=== PATIENT | female | born 1955 | race Caucasian/White ===

== ENCOUNTER 2019-09-05 18:36 | Observation (INO) ==
--- NOTE | 2019-09-05 20:11 | Diag Imaging Result Doc PS360 ---
EXAM : CT HEAD/C-SPINE W/O CONTRAST HISTORY: ams fall TECHNIQUE: 1. CT head without contrast 2. CT cervical spine without contrast COMPARISON: Head compared to 11/22/2018 FINDINGS: Head: No parenchymal hemorrhage. No epidural or subdural hematoma. No subarachnoid hemorrhage. There is atrophy. No mass identified on this noncontrasted exam. No hydrocephalus. No skull fracture. Cervical spine: Mild scoliosis with reversal of the normal curvature. No precervical soft tissue swelling. No subluxation. No fracture. Degenerative bone spurring most pronounced at C6-7. IMPRESSION: Head: No hemorrhage. No injury. Cervical spine: No acute fracture. This exam was performed using automated exposure control, adjustment of mA or kV according to patient size, and/or use of iterative reconstruction technique. Electronically signed by Demario Durham 09/05/2019 8:09 PM
[2019-09-05 21:52] LABS: BASO# 0.04 X1000 (0.0-0.2); BASO% 0.3 % (0.0-0.8); EOS# 0.04 X1000 (0.0-0.7); EOS% 0.3 % (0.0-10.0); HEMATOCRIT 34.6 % (37.0-47.0); HEMOGLOBIN 10.9 g/dL (12.0-16.0); IMM GRAN# 0.04 X1000 (0.0-0.04); IMM GRAN% 0.3 % (0.0-0.5); LYMPH# 1.33 X1000 (1.2-3.4); LYMPH% 10.2 % (20.5-51.1); MCH 29.6 PG (27-31); MCHC 31.5 g/dL (33-37); MONO# 1.09 X1000 (0.11-0.59); MONO% 8.4 % (1.7-9.3); MPV 10.6 FL (7.4-10.4); NEUT# 10.46 X1000 (1.4-6.5); NEUT% 80.5 % (42.2-75.2); PLT 339 X1000 (130-400); RBC 3.68 XMIL (4.2-5.4); RDW 14.4 % (11.5-14.5)
--- NOTE | 2019-09-05 21:53 | Diag Imaging Result Doc PS360 ---
EXAM: CHEST-PORTABLE HISTORY: AMS TECHNIQUE: Single view COMPARISON: 11/22/2018 FINDINGS: The lungs are well expanded. The heart is not enlarged. The vessels are not distended. There are no infiltrates. No effusion identified. IMPRESSION: Negative exam. Electronically signed by Demario Durham 09/05/2019 9:50 PM
[2019-09-05 22:05] LABS: INR 1.11; PROTIME 14.9 Seconds (11.0-16.0)
[2019-09-05 22:06] LABS: PTT 29.7 Seconds (22.3-41.8)
[2019-09-05 22:12] LABS: URINE SOURCE CATH
[2019-09-05 22:15] LABS: ALBUMIN 4.7 g/dL (3.5-5.0); CALCIUM 9.7 mg/dL (8.8-10.2); CREATININE 3.1 mg/dL (0.5-0.9); POTASSIUM 4.2 mmol/L (3.5-5.1); TOTAL BILIRUBIN 0.3 mg/dL (0.20-1.00); TOTAL PROTEIN 8.1 g/dL (6.3-8.3)
[2019-09-05 22:17] LABS: BILIRUBIN URINE SMALL (NEGATIVE); BLOOD URINE NEGATIVE (NEGATIVE); COLOR ORANGE; GLUCOSE URINE NEGATIVE (NEGATIVE); KETONE URINE TRACE mg/dL (NEGATIVE); LEUKOCYTES URINE NEGATIVE (NEGATIVE); NITRITE URINE NEGATIVE (NEGATIVE); PH URINE 5.5; PROTEIN URINE 100 mg/dL (NEGATIVE); SP GRAVITY URINE 1.023; TURBIDITY URINE TURBID (CLEAR); UROBILINOGEN URINE 3 mg/dL (NORMAL)
[2019-09-05 22:23] LABS: UR AMPHETAMINES QUAL NONE DETECTED (NONE DETECT); UR BARBITUATES QUAL NONE DETECTED (NONE DETECT); UR BENZODIAZEPIN QUAL PRESUMPTIVE POSITIVE (NONE DETECT); UR COCAINE QUAL PRESUMPTIVE POSITIVE (NONE DETECT)
[2019-09-05 22:24] LABS: UR CANNABINOIDS QUAL NONE DETECTED (NONE DETECT); UR METHADONE QUAL NONE DETECTED (NONE DETECT); UR METHAMPHETAMINE QUAL NONE DETECTED (NONE DETECT); UR OPIATES QUAL NONE DETECTED (NONE DETECT); UR OXYCODONE QUAL NONE DETECTED (NONE DETECT); UR PCP QUAL NONE DETECTED (NONE DETECT); UR PROPOXYPHENE QUAL NONE DETECTED (NONE DETECT); UR TCA QUAL PRESUMPTIVE POSITIVE (NONE DETECT)
[2019-09-05 22:39] LABS: UR EPITHELIAL CELLS <10 /HPF (<10); URINE RBC <10 /HPF (<10); URINE WBC <10 /HPF (<10)
[2019-09-05 22:40] LABS: URINE BACTERIA 2+ /HPF; URINE CASTS NONE SEEN; URINE CRYSTALS NONE SEEN; URINE YEAST NONE SEEN
[2019-09-05 22:41] LABS: URINE SMALL ROUND CELLS TRANS PRESENT
[2019-09-05] MEDS ORDERED: NS 1,000 ML IV ONE (23:18)
[2019-09-05] MEDS ORDERED: NS 2,000 ML IV ONE (23:38)
--- NOTE | 2019-09-06 00:36 | PROVIDER DOCUMENTATION ---
This chart was entered by Jodee Crawford Scribe, acting as scribe for Arnol Shirley MD. HPI-General Adult - General Chief Complaint: Extremity Pain Stated Complaint: FALL/AMS Time Seen by Provider: 09/05/19 22:02 Source: patient Allergies/Adverse Reactions: Patient Allergies Allergy/AdvReac Type Severity Reaction Status Date / Time No Known Allergies Allergy Verified 09/05/19 21:36 Home Medications: Home Medication List Medication Instructions Recorded Confirmed Last Taken Type Amitriptyline HCl 25 mg PO QHS 09/05/19 09/05/19 Unknown History Baclofen [Lioresal] 10 mg PO 4XDAY PRN 09/05/19 09/05/19 Unknown History Buprenorphine HCl/Naloxone HCl 0.5 film SUBLINGUAL TID 09/05/19 09/05/19 Unknown History [Buprenorp-Nalox 8-2 mg Sl Film] Bupropion HCl [Bupropion HCl ER] 150 mg PO DAILY 09/05/19 09/05/19 Unknown History Lisinopril/Hydrochlorothiazide 1 tab PO DAILY 09/05/19 09/05/19 Unknown History [Lisinopril-Hctz 20-25 mg Tab] Sertraline HCl 1.5 tab PO DAILY 09/05/19 09/05/19 Unknown History Lorazepam [Ativan] 1 mg PO PRN PRN 09/06/19 09/06/19 Unknown History - History of Present Illness -Gen Adult Nature of Presenting Problems: Pt is a 64 yof who presents to the ED via roommate with a cc of decreased mental status after multiple falls in the past 2 wks. pt reports taking multiple mind altering medications. Pt roommate states that the pt has been confused for a year but it has worsened over the past wk. states that pt was seen at clinic recently and treated for back pain after fall. denies any other complaints. pt is a former illicit drug user. Severity: reports: mild Onset/Duration: reports: unsure Timing: reports: still present Context/Activities at Onset: reports: none Modifying Factors: improves with: nothing Associated Symptoms: reports: other (confusion) Similar Symptoms Previously?: Yes Recently seen or treated by another doctor?: Yes Review of Systems - Adult - REVIEW OF SYSTEMS - ADULT Constitutional: reports: see HPI Eyes: reports: no symptoms reported Ears, Nose, Mouth & Throat: reports: no symptoms reported Cardiovascular: reports: no symptoms reported Respiratory: reports: no symptoms reported Gastrointestinal: reports: no symptoms reported Genitourinary: reports: no symptoms reported Musculoskeletal: reports: no symptoms reported Integumentary: reports: no symptoms reported Neurological: reports: see HPI, loss of balance, other (confusion) Psychiatric: reports: see HPI, anti-depressant use Endocrine: reports: no symptoms reported Hematologic/Lymphatic: reports: no symptoms reported Allergic/Immunologic: reports: no symptoms reported All Other Systems: Reviewed and Negative Past History - Adult - PAST MEDICAL HISTORY-ADULT Review of Records: reports: Old Records Reviewed, Nursing Assessment Review, Medications Reviewed, Social history reviewed & non-contributory. Major Childhood Illnesses: reports: denies history Cardiovascular: reports: denies history Respiratory: reports: denies history Gastrointestinal: reports: denies history Obstetrical/Gynecological: reports: denies history Genitourinary: reports: denies history Musculoskeletal: reports: denies history Neurological: reports: denies history Endocrine/Immune: reports: denies history Other Conditions: reports: denies history - PRIOR SURGERIES/PROCEDURES Surgical/Procedure History: reports: none - IMMUNIZATION STATUS Childhood Immunizations: See Nurse Assessment Flu Vaccine: See Nurse Assessment - FAMILY HISTORY Family History: reviewed, not pertinent - SOCIAL HISTORY Substance Use: none presently/history of abuse, opiates Living Situation: friend Physical Exam-General - PHYSICAL EXAM-ADULT Initial Vital Signs Reviewed: No - CONSTITUTIONAL General Appearance: alert, no apparent distress - EYES Eyes: PERRL/EOMI, pink conjunctivae - HEAD, EARS, NOSE, MOUTH & THROAT HENMT: normocephalic/atraumatic, moist mucous membranes - RESPIRATORY Respiratory: chest non-tender, lungs clear, normal breath sounds, no respiratory distress, no accessory muscle use - CARDIOVASCULAR Cardiovascular: normal peripheral pulses, regular rate, rhythm - GASTROINTESTINAL (ABDOMEN) Abdominal Exam: normal bowel sounds, non tender, soft - MUSCULOSKELETAL Back Exam: normal inspection Extremity: normal range of motion, normal inspection - SKIN Integumentary: normal color, normal turgor, warm/dry - PSYCHIATRIC Psych/Mental Status: other (Pt is confused. Pt replies with "1993" when asked what year it is.) Progress - PLAN OF CARE/RESULTS Progress/Plan/Lab Results: Vital Signs - 8 hr 09/05/19 18:42 09/05/19 18:56 Temperature 98 F 98 F Pulse Rate 85 100 H Respiratory Rate 18 18 Blood Pressure 117/69 145/91 O2 Sat by Pulse Oximetry 97 96 Laboratory Results - last 24 hr 09/05/19 09/05/19 21:28 21:28 WBC 13.00 H RBC 3.68 L Hgb 10.9 L Hct 34.6 L MCV 94.0 MCH 29.6 MCHC 31.5 L RDW Std Deviation 14.4 Plt Count 339 MPV 10.6 H Immature Gran % (Auto) 0.3 Neut % (Auto) 80.5 H Lymph % (Auto) 10.2 L [place] % (Auto) 8.4 Eos % (Auto) 0.3 Baso % (Auto) 0.3 Immature Gran # (Auto) 0.04 Neut # (Auto) 10.46 H Lymph # (Auto) 1.33 [place] # (Auto) 1.09 H Eos # (Auto) 0.04 Baso # (Auto) 0.04 Plasma Lactate 1.2 Orders Category Date Time Status Cardiac Monitoring DIRECTED Care 09/05/19 21:11 Active Finger Stick Blood Sugar (ED) DIRECTED Care 09/05/19 21:11 Active Oxygen Therapy- ED Nursing DIRECTED Care 09/05/19 21:11 Active Saline Loc NOW Care 09/05/19 21:11 Active CHEST-PORTABLE [RAD] Stat Exams 09/05/19 21:[address] HEAD/C-SPINE W/O CONTRAST [CT] Stat Exams 09/05/19 18:52 Completed ALCOHOL BLOOD Stat Lab 09/05/19 21:28 Received CBC WITH ELECTRONIC DIFF [HEME] Stat Lab 09/05/19 21:28 Completed CK PROFILE [SP CHEM] Stat Lab 09/05/19 21:28 Received COMPREHENSIVE METABOLIC PANEL [CHEM] Stat Lab 09/05/19 21:28 Received LACTATE, PLASMA [CHEM] Stat Lab 09/05/19 21:28 Completed PROTIME WITH INR [COAG] Stat Lab 09/05/19 21:28 Received PTT [COAG] Stat Lab 09/05/19 21:28 Received TROPONIN T HIGH SENSITIVITY Stat Lab 09/05/19 21:28 Received URINALYSIS W/POSS RFLX CULT [URINALYSIS] Stat Lab 09/05/19 18:52 Uncollected URINE DRUG SCREEN PL Stat Lab 09/05/19 21:12 Uncollected Altered Mental Status Stat Oth 09/05/19 21:11 Ordered EKG [EKG] Stat Ther 09/05/19 21:11 Ordered Result Diagrams: 09/05/19 21:28 09/05/19 21:28 - EKG 1 Time of EKG reading by physician:: 23:24 EKG Read and Signed by:: Arnol Shirley EKG Interpretation (*Must complete 3 of following elements*): Normal Rate: 73 Rhythm: nsr [place]: normal QRS: normal ME Interval: normal ST Wave: normal - XRAY 1 XRAY: Bilateral XRAY Study: Chest Impression: Normal, See EMR Report (EXAM: CHEST-PORTABLE HISTORY: AMS TECHNIQUE: Single view COMPARISON: 11/22/2018 FINDINGS: The lungs are well expanded. The heart is not enlarged. The vessels are not distended. There are no infiltrates. No effusion identified. IMPRESSION: Negative exam. Electronically signed by Demario Durham 09/05/2019 9:50 PM 09/05/192149 Interpreting Physician: Demario Durham MD Dictated Date/Time: 09/05/192149 cc: Arnol Shirley MD; None,PCP) - CT/MRI 1 CT Study: Head Impression: See EMR Report ( EXAM : CT HEAD/C-SPINE W/O CONTRAST HISTORY: ams fall TECHNIQUE: 1. CT head without contrast 2. CT cervical spine without contrast COMPARISON: Head compared to 11/22/2018 FINDINGS: Head: No parenchymal hemorrhage. No epidural or subdural hematoma. No subarachnoid hemorrhage. There is atrophy. No mass identified on this noncontrasted exam. No hydrocephalus. No skull fracture. Cervical spine: Mild scoliosis with reversal of the normal curvature. No precervical soft tissue swelling. No subluxation. No fracture. Degenerative bone spurring most pronounced at C6-7. IMPRESSION: Head: No hemorrhage. No injury. Cervical spine: No acute fracture. This exam was performed using automated exposure control, adjustment of mA or kV according to patient size, and/or use of iterative reconstruction technique. El ectronically signed by Demario Durham 09/05/2019 8:09 PM 09/05/192008 Interpreting Physician: Demario Durham MD Dictated Date/Time: 09/05/192005 cc: Arnol Shirley MD; None,PCP) Departure - Departure Date of Disposition Decision: 09/05/19 Time of Disposition Decision: 23:19 DIAGNOSIS: Dehydration Disposition: HOME 01 Certified Medical Emergency: Emergent Condition: Stable - Critical Care Note This patient required my direct & personal management of CC.: No Attestation - Physician/ VISHAL Attestation Patient care was provided by Advanced Practice Provider:: No The physician spent face to face time with patient:: Yes Advanced Practice Provider documentation review:: Supervising physician onsite and consulted in the evaluation and care of this patient. The physician did have a face to face encounter with the patient. This chart was documented by the indicated scribe, (Jodee Crawford Scribe) and accurately reflects the services I performed and decisions made by me, Arnol Shirley MD, as attested by the provider's signature.
--- NOTE | 2019-09-06 05:34 | EKG Report ---
Test Performed on : 09/05/2019 11:24:39 PM Test Reason : ams Blood Pressure : / mmHG Vent. Rate : 073 BPM Atrial Rate : 073 BPM P-R Int : 178 ms QRS Dur : 062 ms QT Int : 368 ms P-R-T Axes : 010 046 093 degrees QTc Int : 405 ms Normal sinus rhythm. Normal ECG When compared with ECG of 22-NOV-2018 19:34, Nonspecific T wave abnormality, worse in Lateral leads Unconfirmed Result
[2019-09-06 08:11] LABS: ALBUMIN 4.3 g/dL (3.5-5.0); CALCIUM 9.1 mg/dL (8.8-10.2); CREATININE 2.8 mg/dL (0.5-0.9); POTASSIUM 3.7 mmol/L (3.5-5.1); TOTAL BILIRUBIN 0.3 mg/dL (0.20-1.00); TOTAL PROTEIN 7.8 g/dL (6.3-8.3)
[2019-09-06] MEDS ORDERED: LEVAQUIN 250 MG/D5W 250 MG/50 ML IVPB IV SCH (08:30)
[2019-09-06] MEDS ORDERED: NS 1,000 ML IV SCH (08:30)
--- NOTE | 2019-09-06 09:31 | Diag Imaging Result Doc PS360 ---
EXAM: MRI BRAIN W/O CONTRAST HISTORY: r/o cva TECHNIQUE: MRI brain without contrast. Axial, sagittal, and coronal images obtained in multiple sequences. COMPARISON: CT from 09/05/2019 FINDINGS: No recent infarct. There is mild atrophy. There are tiny areas of increased signal in the deep white matter on the T2 and FLAIR weighted images. No mass or midline shift. No epidural or subdural fluid collection. Normal orbits. No sinus opacification or air-fluid levels. IMPRESSION: 1.No recent infarct. There are only mild chronic microvascular ischemic changes. 2.Atrophy Electronically signed by Demario Durham 09/06/2019 9:29 AM
[2019-09-06] MEDS: ZOLOFT PO SCH (09:41)
[2019-09-06] MEDS: SUBOXONE 8 MG/2 MG FILM SL SCH ×2 (09:43→20:12)
--- NOTE | 2019-09-06 10:08 | HISTORY AND PHYSICAL ---
PRIMARY CARE PROVIDER: None. CHIEF COMPLAINT: Per friend at bedside, altered mental status. HISTORY OF PRESENT ILLNESS: Ms. 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 She takes Suboxone for that now. Her roommate reports she has had some memory loss over the past year. However, it is not interfered with her ability to function. She has a part- time job at [employer], does all of her ADLs herself. However, on Tuesday, she tripped and fell over one of her dogs and hurt her back. Since that time, she has been in the bed. She has had a cough and had an exacerbation in her altered mental status. Her friend felt, over the past few days, she was not taking her medication as she should. She felt maybe she was taking too little. She is currently awake, alert, and oriented to name and date of . She knows her roommate at her bedside. She thinks the year is 2003 and [facility] is the President. She does know that she is at [place] and she lives in [place]. Workup in the ED with a head and cervical spine CT did not show any acute findings. Chest x-ray was negative. Laboratory data shows acute renal failure, leukocytosis, elevated anion gap, and a urinary tract infection. She is positive for tricyclics, benzodiazepines, and cocaine which the patient and the roommate adamantly deny. She clinically appears to be dehydrated. She will be aggressively hydrated. We will start her on IV antibiotics for her UTI. Continue her on her home Suboxone at a lower dose to keep her from going into withdrawal and check a brain MRI. The patient's only complaint was continued back pain and a cough. She denies any recent fever, chills, chest pain, shortness of breath, nausea, vomiting, or diarrhea. PAST MEDICAL HISTORY: Anxiety, depression, hypertension, methamphetamine use 13-14 years ago. PAST SURGICAL HISTORY: Appendectomy, tonsillectomy. FAMILY HISTORY: Mother is from colon cancer. Sister from ovarian cancer. Father is , I believe from a car accident but he also had history of MIs. A brother with NC who is still living, and diabetes mellitus as well. SOCIAL HISTORY: She lives with a friend and has done so for the past 7 years. She is a smoker, half pack per day, has done so since she was a teenager. Social alcohol drinker but denies any illicit drug use. She does have a history of methamphetamine use 13 to 14 years ago. She is currently taking Suboxone for that. She does not have any children. She does have a dog named Nuno. That is her child, as well as 3 other dogs in her residence. PHYSICAL EXAMINATION: VITAL SIGNS: Temperature is 98 degrees, heart rate 74, respirations 18, blood pressure 141/76, O2 is 99% on room air. GENERAL: Ms. Jin is a pleasantly confused, 64-year-old, female, lying in the bed. No acute distress. HEENT: Atraumatic, normocephalic. PERRL. NECK: Supple. Trachea midline. CARDIOVASCULAR: S1, S2 appreciated. No murmurs, gallops, or rubs noted. RESPIRATORY: Lung sounds, scattered rhonchi. No rales or wheezes. GI: Soft, nontender, nondistended. Positive bowel sounds in 4 quadrants. EXTREMITIES: Lower extremities are negative for edema. NEUROLOGIC: Patient is alert to name and date of , location. However, she believes the year is 2003 and [facility] is President. DIAGNOSTIC DATA: Head and cervical spine CT did not show anything acute. Chest x-ray, negative exam. EKG, normal sinus rhythm at 73 beats per minute. LABORATORY DATA: White count 13, hemoglobin and hematocrit 10 and 34, platelet count is 339,000. Sodium 138, potassium 4.2, anion gap is 20, BUN 54, creatinine 3.1, blood glucose is 161. Troponin 34. Plasma lactate 1.2. Urinalysis, 2+ bacteria, negative for nitrites, turbid. Toxicology screen positive for tricyclics, benzodiazepines, and cocaine. Alcohol level 0. ASSESSMENT AND PLAN: 1. Altered mental status, multifactorial. Could be toxic as well as metabolic. Per her friend at bedside, she has not been taking her home medications since Tuesday, as she should. Could be possible withdrawal. She does have a small urinary tract infection. She does have an anion gap metabolic acidosis. She is clinically dehydrated. We will treat her for her urinary tract infection. Await the urine culture. Continue with aggressive intravenous hydration and start her back on her home Suboxone at a lower dose. Check a brain MRI. 2. Urinary tract infection. Continue antibiotic. Await culture. 4. Anion Gap Metabolic Acidosis continue with IVF's 5. Reported multiple falls at home per emergency department record. Did not get that from the patient or her roommate at the bedside, but she did have a fall on Tuesday. We will get physical therapy involved. 6. Back pain secondary to a fall on Tuesday. 7. Acute renal failure. We will continue with aggressive intravenous hydration. Believed to be secondary to dehydration. 8. Clinical dehydration. Continue with aggressive intravenous fluids. 9. Anxiety and depression. We will continue home medications when appropriate. We will continue her Zoloft and amitriptyline. 10. Hypertension. The patient had some borderline blood pressures overnight. We will monitor for now. 11. Further recommendations to follow physician evaluation, laboratory and diagnostic data. Dictated by VIRGINIA Busch for Lele Lozano MD cc: Lele Lozano MD MTDD
[2019-09-06] MEDS: MUCINEX PO SCH ×2 (12:03→20:11)
[2019-09-06] MEDS ORDERED: LR 1,000 ML IV SCH (14:30)
[2019-09-06 16:44] LABS: UR AMPHETAMINES QUAL NONE DETECTED (NONE DETECT); UR BARBITUATES QUAL NONE DETECTED (NONE DETECT); UR BENZODIAZEPIN QUAL PRESUMPTIVE POSITIVE (NONE DETECT); UR CANNABINOIDS QUAL NONE DETECTED (NONE DETECT); UR COCAINE QUAL NONE DETECTED (NONE DETECT); UR METHADONE QUAL NONE DETECTED (NONE DETECT); UR METHAMPHETAMINE QUAL NONE DETECTED (NONE DETECT); UR OPIATES QUAL NONE DETECTED (NONE DETECT); UR OXYCODONE QUAL NONE DETECTED (NONE DETECT); UR PCP QUAL NONE DETECTED (NONE DETECT); UR PROPOXYPHENE QUAL NONE DETECTED (NONE DETECT); UR TCA QUAL PRESUMPTIVE POSITIVE (NONE DETECT)
[2019-09-06] MEDS: ELAVIL PO SCH (20:12)
--- NOTE | 2019-09-06 21:49 | HISTORY AND PHYSICAL ---
ADDENDUM: Patient seen and examined by myself. Full note dictated and discussed with nurse practitioner. Patient presented to the hospital with her daughter noting that she is confused, disoriented. She did have a urine drug screen positive for cocaine, but the daughter notes this is very highly unlikely that it is possible. Her repeat was negative with the expectation that this was a false-positive. Regardless, her blood pressure are low at 99/36. She does take blood pressure medications. The daughter is unclear if she has been taking her medications correctly or if she has been taking too many. At this point, she smokes pack a day. She does drink alcohol only occasionally. We are going to admit her to the hospital. She does have a known history of dementia. We are going to place her on antibiotics, as she certainly could have urinary tract infection. Continue buprenorphine to prevent withdrawal, although, we will decrease the dose. Further orders as needed. cc: Lele Lozano MD
[2019-09-06] MEDS: NS 1,000 ML IV SCH (23:37)
[2019-09-07 05:30] LABS: HEMATOCRIT 30.8 % (37.0-47.0); HEMOGLOBIN 9.4 g/dL (12.0-16.0); MCH 29.7 PG (27-31); MCHC 30.5 g/dL (33-37); MCV 97.2 FL (81-99); MPV 10.6 FL (7.4-10.4); RBC 3.17 XMIL (4.2-5.4); RDW 14.3 % (11.5-14.5); WBC 7.89 X1000 (4.8-10.8)
[2019-09-07 06:00] LABS: ALBUMIN 3.6 g/dL (3.5-5.0); CREATININE 1.7 mg/dL (0.5-0.9); POTASSIUM 4.3 mmol/L (3.5-5.1); TOTAL BILIRUBIN 0.2 mg/dL (0.20-1.00); TOTAL PROTEIN 6.7 g/dL (6.3-8.3)
[2019-09-07] MEDS: NS 1,000 ML IV SCH ×4 (06:57→13:55)
[2019-09-07] MEDS ORDERED: ZOFRAN IV PRN (07:24)
[2019-09-07] MEDS: SUBOXONE 8 MG/2 MG FILM SL SCH ×2 (08:35→21:04)
[2019-09-07] MEDS: MUCINEX PO SCH ×2 (08:35→21:04)
[2019-09-07] MEDS: ZOLOFT PO SCH (08:35)
[2019-09-07] MEDS: ZOSYN 3.375 GM in NS 50 ML IV SCH ×3 (08:36→21:03)
[2019-09-07] MEDS: TYLENOL PO PRN ×2 (08:45→21:03)
--- NOTE | 2019-09-07 10:57 | Diag Imaging Result Doc PS360 ---
EXAM: CHEST-2 VIEWS HISTORY: VQ scan TECHNIQUE: Two views COMPARISON: 09/05/2019 FINDINGS: The lungs are well expanded. The heart is not enlarged. The vessels are not distended. There are no infiltrates. No pleural effusions. IMPRESSION: No acute abnormality. Electronically signed by Demario Durham 09/07/2019 10:55 AM
--- NOTE | 2019-09-07 15:35 | Diag Imaging Result Doc PS360 ---
EXAM: LUNG SCAN / VQ - 09/07/2019 HISTORY: elevated d dimer TECHNIQUE: Lung ventilation/perfusion scan. Perfusion images performed using 5.8 mCi technetium 99m MAA administered intravenously. Ventilation images performed using 40.2 mCi technetium 99m DTPA aerosol inhaled. Ventilation perfusion images are obtained in multiple projections over the lungs. COMPARISON: None. FINDINGS: There is no perfusion defect identified. There is no ventilation/perfusion mismatch identified. IMPRESSION: No evidence of pulmonary embolism. Electronically signed by Bandar Kennedy 09/07/2019 3:33 PM
--- NOTE | 2019-09-07 18:01 | Vascular Study Report ---
EXAM: Venous U/S Bilateral Legs - 09/07/2019 HISTORY: d dimer TECHNIQUE: Bilateral lower extremity Doppler venous ultrasound COMPARISON: None. FINDINGS: The deep veins of the bilateral lower extremity demonstrate flow and compressibility. There are no filling defects identified. IMPRESSION: No evidence of deep venous thrombosis in either lower extremity. Electronically signed by Bandar Kennedy 09/07/2019 5:58 PM
[2019-09-07] MEDS: ELAVIL PO SCH (21:04)
[2019-09-07] MEDS ORDERED: TUMS PO ONE (22:00)
--- NOTE | 2019-09-07 23:12 | PROGRESS NOTE ---
DATE: 09/07/2019 SUBJECTIVE: The patient's daughter notes that she is doing a lot better. She is having much improved mental status, although she is not completely back to her baseline. PHYSICAL EXAMINATION: Temperature 98, pulse 94, respiratory rate 20, BP 118/91.General: The patient is awake, pleasant. She is in no current respiratory distress. HEENT: Normocephalic. Neck: Supple. Cardiovascular: Regular rate, chest clear and unlabored. Abdomen: Soft, nondistended. Extremities: Moves all extremities. Neurologic: She is awake, alert. Appears to be more oriented. ASSESSMENT: 1. Acute renal failure, creatinine 2.8. Currently improving at 1.7. 2. Metabolic acidosis, improving. 3. Acute metabolic encephalopathy, also improving. 4. Urinary tract infection. 5. Chronic pain. 6. Chronic anxiety and depression. PLAN: We are going to continue the patient in the hospital, continue physical therapy. Continue to monitor. She is doing better on antibiotics. We are going to change Levaquin, as this certainly could be contributing although did not cause her mental status changes and will follow. cc: Lele Lozano MD
[2019-09-08] MEDS: ZOSYN 3.375 GM in NS 50 ML IV SCH ×4 (02:08→21:35)
[2019-09-08 06:26] LABS: HEMATOCRIT 27.6 % (37.0-47.0); HEMOGLOBIN 8.3 g/dL (12.0-16.0); MCH 29.4 PG (27-31); MCHC 30.1 g/dL (33-37); MCV 97.9 FL (81-99); MPV 10.7 FL (7.4-10.4); RBC 2.82 XMIL (4.2-5.4); RDW 14.3 % (11.5-14.5); WBC 6.78 X1000 (4.8-10.8)
--- NOTE | 2019-09-08 06:26 | EKG Report ---
Test Performed on : 09/08/2019 04:52:44 AM Test Reason : C/O CHEST PAIN Blood Pressure : / mmHG Vent. Rate : 060 BPM Atrial Rate : 060 BPM P-R Int : 212 ms QRS Dur : 076 ms QT Int : 414 ms P-R-T Axes : 048 026 060 degrees QTc Int : 414 ms Sinus rhythm. with 1st degree AV block. Low voltage QRS Borderline ECG When compared with ECG of 05-SEP-2019 23:24, (Unconfirmed) ID interval has increased Nonspecific T wave abnormality no longer evident in Lateral leads Unconfirmed Result
[2019-09-08 06:32] LABS: ALBUMIN 3.3 g/dL (3.5-5.0); CALCIUM 8.9 mg/dL (8.8-10.2); CREATININE 1.6 mg/dL (0.5-0.9); MAGNESIUM 1.7 mg/dL (1.5-2.7); POTASSIUM 4.1 mmol/L (3.5-5.1); TOTAL BILIRUBIN 0.2 mg/dL (0.20-1.00); TOTAL PROTEIN 6.4 g/dL (6.3-8.3)
[2019-09-08] MEDS: MUCINEX PO SCH ×2 (08:44→21:34)
[2019-09-08] MEDS: SUBOXONE 8 MG/2 MG FILM SL SCH ×2 (08:44→21:34)
[2019-09-08] MEDS: ZOLOFT PO SCH (08:44)
[2019-09-08] MEDS ORDERED: LINZESS PO ONE ×2 (09:28→14:30)
[2019-09-08] MEDS: NS 1,000 ML IV SCH (13:01)
[2019-09-08] MEDS: MIRALAX PO SCH (14:30)
[2019-09-08] MEDS: ELAVIL PO SCH (21:34)
--- NOTE | 2019-09-08 22:36 | PROGRESS NOTE ---
DATE: 09/08/2019 SUBJECTIVE: The patient with no new complaints. Lis notes that she is much improved, although she is still very weak and unable to care for herself. PHYSICAL EXAMINATION: Temperature 97 degrees, pulse 55, respiratory rate 18, BP 132/61.General: The patient is pleasant, in no current respiratory distress. HEENT: Normocephalic. Neck: Supple. Cardiovascular: Regular rate. Chest: Clear. Abdomen: Soft. Extremities: Moves all extremities. Neurologic: No changes. ASSESSMENT: 1. Acute metabolic encephalopathy, resolved. 2. Dehydration, resolved. 3. Acute renal failure, resolved. Creatinine appears to be back to her baseline. 4. Metabolic acidosis, likely secondary to her chronic renal failure. 5. Anemia of chronic disease. 6. Adult failure to thrive with generalized weakness. PLAN: Will continue the patient in the hospital. Continue to follow and we will ask Waiter/Waitress [employer]ist Class for assistance in transitioning to rehab. cc: Lele Lozano MD
[2019-09-09] MEDS: ZOSYN 3.375 GM in NS 50 ML IV SCH ×4 (02:46→21:23)
[2019-09-09] MEDS: SUBOXONE 8 MG/2 MG FILM SL SCH (08:57)
[2019-09-09] MEDS: ZOLOFT PO SCH (08:57)
[2019-09-09] MEDS: MUCINEX PO SCH ×2 (08:57→21:23)
[2019-09-09] MEDS: MIRALAX PO SCH (08:58)
[2019-09-09] MEDS: SUBOXONE 2 MG/0.5 MG FILM SL SCH ×2 (15:37→21:22)
[2019-09-09] MEDS: ELAVIL PO SCH (21:23)
--- NOTE | 2019-09-09 21:38 | PROGRESS NOTE ---
DATE: 09/09/2019 SUBJECTIVE: Patient notes that overall she is feeling a lot better. Denies any fevers, chills, denies cough, congestion. PHYSICAL: Temperature 97, pulse 50s, respiratory 18, BP 134/63.General: Patient is pleasant no current distress. HEENT: Normocephalic. Neck: Supple. CV: Regular rate. Chest: Clear. Abdomen: Soft. Extremities: Moves all extremities. ASSESSMENT: 1. Urinary retention. Currently she still has Black catheter in place. We are going to attempt to bladder train and hopefully remove Black. 2. Adult failure to thrive with generalized weakness, most likely will need rehab. 3. Acute metabolic encephalopathy resolved. She currently is back to her baseline. 4. Chronic mild dementia. 5. Chronic back pain . 6. Situational anxiety. PLAN: We are going continue patient in hospital, continue antibiotics today, continue physical therapy. Her acute renal failure has resolved. Will attempt to remove her Black and will follow. cc: Lele Lozano MD
[2019-09-10] MEDS: ZOSYN 3.375 GM in NS 50 ML IV SCH (01:44)
[2019-09-10] MEDS ORDERED: OMNICEF PO SCH (09:00)
[2019-09-10] MEDS: MUCINEX PO SCH (09:55)
[2019-09-10] MEDS: SUBOXONE 2 MG/0.5 MG FILM SL SCH ×2 (09:55→15:26)
[2019-09-10] MEDS: MIRALAX PO SCH (09:55)
[2019-09-10] MEDS: ZOLOFT PO SCH (09:55)
[2019-09-10 12:08] VITALS: BP 142/73
[2019-09-10] MEDS ORDERED: ATIVAN PO ONE (12:13)
--- NOTE | 2019-09-10 12:28 | DISCHARGE SUMMARY ---
ADMISSION DATE: 09/06/2019 DISCHARGE DATE: 09/10/2019 PRIMARY CARE PHYSICIAN: Listed as none. ADMISSION DIAGNOSES: 1. Altered mental status, multifactorial. 2. Urinary tract infection. 3. Reported multiple falls at home. 4. Back pain secondary to a fall on Tuesday. 5. Acute renal failure. 6. Clinical dehydration. 7. Anxiety and depression. 8. Hypertension. DISCHARGE DIAGNOSES: 1. Urinary retention, improved. 2. Adult failure to thrive with generalized weakness. 3. Acute metabolic encephalopathy resolved. 4. Chronic mild dementia. 5. Chronic back pain. 6. Situational anxiety. 7. Urinary tract infection with urine culture showing no growth. SUMMARY OF FINDINGS: This is a 64-year-old female who presented to the ER after she had tripped and fell over one of her dogs, and hurt her back on the day prior to arriving. Since that time, she had been in bed, had a cough and exacerbation in her altered mental status. She was found to have a UTI, but urine culture was negative. She was given IV hydration. We consulted physical therapy. She has improved overall. She had a urinary retention. We placed a Black catheter, and did bladder training. Her white blood cell count has returned to normal. She had a brain MRI on 09/06/2019 that showed no recent infarct. We did a lower extremity venous Doppler that showed no evidence of a DVT, and a lung V/Q scan both due to an elevated D-dimer that showed no evidence of pulmonary embolism. Chest x-ray on 09/07/2019 showed no acute abnormality. It is now felt that she can safely be discharged to rehab. DISCHARGE MEDICATIONS: 1. Suboxone 2 mg/0.5 mg film 1 sublingually t.i.d. 2. Omnicef 300 mg p.o. b.i.d. for 4 days. 3. Baclofen 10 mg p.o. 4 times daily as needed. 4. Amitriptyline 25 mg p.o. at bedtime. 5. Bupropion 150 mg p.o. daily. 6. Lisinopril/hydrochlorothiazide 20/25 1 p.o. daily. 7. Sertraline 1-1/2 tablets p.o. daily. 8. Ativan 1 mg p.o. p.r.n. FOLLOWUP: She will need to obtain a follow-up physician, and you can contact the physician referral line at time of discharge from rehab to set that up. All discharge instructions have been reviewed, and she verbalizes understanding. TIME SPENT: A 35 minute discharge. Dictated by VIRGINIA Ludwig for Lele Lozano MD cc: VIRGINIA Ludwig MD
--- NOTE | 2019-09-11 15:35 | DISCHARGE SUMMARY ---
ADMISSION DATE: 09/06/2019 DISCHARGE DATE: 09/10/2019 ADDENDUM: Patient seen and examined by myself. Full note dictated and discussed with nurse practitioner. On discharge, patient is awake, alert, feeling better, although she is still fatigued, having difficulty ambulating on her own. She was admitted to the hospital with altered mental status, which is resolved. Leukocytosis is resolved. Acute renal failure 2.8 has resolved with a baseline at 1.6. We are going to transition her to rehab. cc: Lele Lozano MD
== END 2019-09-10 17:00 ==
LOC: P.MEDSURG 18:36 → P.ED 18:36
PROVIDERS: ATTEND Family Medicine